=== PATIENT | female | born 1960 | race African-American/Black ===

== ENCOUNTER 2016-06-23 08:53 | Emergency (ER) | payer BC ==
[2016-06-23 08:58] VITALS: BP 126/93; PULSE 110; TEMP 98.1; BMI 34.3
[2016-06-23] MEDS ORDERED: ALBUTEROL SO4 2.5/IPRATROPIUM 0.5 INH SOL 3 ML VIAL.NEB. NEB ONE (09:19)
[2016-06-23] MEDS ORDERED: guaiFENesin 200 MG/10 ML 10 ML UNIT-DOSE CUPS PO ONE (09:20)
[2016-06-23] MEDS ORDERED: ALBUTEROL SO4 0.083% IH SOL 2.5 MG/3 ML VIAL.NEB. NEB ONE (09:47)
--- NOTE | 2016-06-23 09:52 | PDOC ---
History of Present Illness - General Chief Complaint: Cold Symptoms Stated Complaint: COUGH, SOB Time Seen by Provider: 06/23/16 09:14 History Source: Patient Exam Limitations: No Limitations - History of Present Illness Initial Comments: 06/23/16 09:49 55 yr female with history of asthma presents with cough wheezing ran out of singulair. no fever no productive phlegm, no shortness of breath. No intubations. Pt speaking full sentences no distress. 06/23/16 09:50 Past History - Past Medical History Allergies/Adverse Reactions: Allergies Allergy/AdvReac Type Severity Reaction Status Date / Time No Known Allergies Allergy Verified 06/23/16 08:53 Home Medications: Ambulatory Orders Albuterol Sulfate Inhaler - [Ventolin HFA Inhaler -] 2 inh IH Q6H #1 inh Albuterol Sulfate Liquid [Ventolin Oral Solution -] 4 mg PO QID #60 ml 11/21/15 Prednisone [Deltasone -] 60 mg PO DAILY #12 tablet 03/13/16 Albuterol 0.083% Nebulizer Leilani [Ventolin 0.083% Nebulizer Soln -] 1 neb NEB Q4H PRN #20 vial 06/23/16 Montelukast Na [Singulair -] 10 mg PO HS #30 tablet 06/23/16 Prednisone [Deltasone -] 40 mg PO DAILY #14 tablet 06/23/16 Anemia: No Asthma: Yes Cancer: No Cardiac Disorders: No CVA: No COPD: No CHF: No Dementia: No Diabetes: No GI Disorders: No Disorders: No HTN: No Hypercholesterolemia: No Liver Disease: No Suicide Attempt (Hx): No Seizures: No Thyroid Disease: No - Surgical History Abdominal Surgery: No Appendectomy: No Cardiac Surgery: No Cholecystectomy: No Lung Surgery: No Neurologic Surgery: No Orthopedic Surgery: No - Family Disease History Family Disease History: Diabetes: Father - Immunization History Immunization Up to Date: Yes - Psycho/Social/Smoking Cessation Hx Anxiety: No Suicidal Ideation: No Smoking Status: No Smoking History: Never smoked Have you smoked in the past 12 months: No Number of Cigarettes Smoked Daily: 0 Cigars Per Day: 0 Information on smoking cessation initiated: No Hx Alcohol Use: No Drug/Substance Use Hx: No Substance Use Type: None Respiratory Specific PMHX - Complaint Specific PMHX Bronchitis: Yes Review of Systems - Review of Systems Able to Perform ROS?: Yes Is the patient limited Uzbek proficient: No Constitutional: No: Symptoms Reported HEENTM: Yes: Symptoms Reported Respiratory: Yes: Cough *Physical Exam - Vital Signs Last Vital Signs Temp Pulse Resp BP Pulse Ox 98.1 F 110 H 18 126/93 100 06/23/16 08:54 06/23/16 08:54 06/23/16 08:54 06/23/16 08:54 06/23/16 08:54 - Physical Exam General Appearance: Yes: Nourished, Appropriately Dressed HEENT: positive: EOMI, PETRA, Normal ENT Inspection, TMs Normal, Pharynx Normal Neck: positive: Supple. negative: Lymphadenopathy (R), Lymphadenopathy (L) Respiratory/Chest: positive: Lungs Clear, Normal Breath Sounds, Wheezing Cardiovascular: positive: Regular Rhythm, Regular Rate Gastrointestinal/Abdominal: positive: Normal Bowel Sounds, Soft Musculoskeletal: positive: Normal Inspection Extremity: positive: Normal Capillary Refill, Normal Inspection, Normal Range of Motion Integumentary: positive: Normal Color, Dry, Warm Neurologic: positive: Fully Oriented, Alert, Normal Mood/Affect, Normal Response , Motor Strength 10/03 ED Treatment Course - Medications Given in the ED: ED Medications Discontinued Medications Generic Name Dose Route Start Last Admin Trade Name Freq PRN Reason Stop Dose Admin Albuterol/Ipratropium 1 amp 06/23/16 09:19 06/23/16 09:26 Duoneb - NEB 06/23/16 09:20 1 amp ONCE ONE Administration Guaifenesin 10 ml 06/23/16 09:20 06/23/16 09:32 Robitussin - PO 06/23/16 09:21 10 ml ONCE ONE Administration Medical Decision Making - Medical Decision Making 06/23/16 09:51 cc: cough wheezing mild expiratory will give 2 duonebs and re-eval 06/23/16 16:47 pt improved after duonebs. mild exp wheezing will place on prednisone pt speaking clearly will follow with her PMD in 1-2 days all questions asked and answered before discharge *DC/Admit/Observation/Transfer Diagnosis at time of Disposition: Asthma exacerbation Qualifiers: Asthma severity: mild intermittent Qualified Code(s): J45.21 - Mild intermittent asthma with (acute) exacerbation - Discharge Dispostion Condition at time of disposition: Good - Prescriptions Prescriptions: Prednisone [Deltasone -] 40 mg PO DAILY #14 tablet Montelukast Na [Singulair -] 10 mg PO HS #30 tablet Albuterol 0.083% Nebulizer Leilani [Ventolin 0.083% Nebulizer Soln -] 1 neb NEB Q4H PRN #20 vial PRN Reason: Asthma - Patient Instructions Additional Instructions: drink pleanty of water to stay hydrated take singulair at bedtime every night use your nebulizer every 4hrs for wheezing as needed next dose prednisone tomorrow morning
[2016-06-23] MEDS ORDERED: predniSONE 20 MG TABLET (UD) PO ONE (10:12)
== END 2016-06-23 10:17 | disposition home or self-care (01) ==
LOC: JERFT 08:53
PROC: 3E0F7GC Introduction of Other Therapeutic Substance into Respiratory Tract, Via Natural or Artificial Opening (ICD-10-PCS; principal; 2016-06-23)
PROC: 3E0F7GC Introduction of Other Therapeutic Substance into Respiratory Tract, Via Natural or Artificial Opening (ICD-10-PCS; 2016-06-23)
DX: J45.21 Mild intermittent asthma with (acute) exacerbation (principal)
CPT/HCPCS: 99281-25

== ENCOUNTER 2016-09-26 13:17 | Emergency (ER) | payer BC ==
[2016-09-26 13:21] VITALS: BP 128/88; TEMP 97.7; BMI 34.3
--- NOTE | 2016-09-26 13:39 | PDOC ---
History of Present Illness - General Chief Complaint: Respiratory Stated Complaint: CHEST PAIN Time Seen by Provider: 09/26/16 13:37 History Source: Patient Exam Limitations: No Limitations - History of Present Illness Initial Comments: CHIEF COMPLAINT: 55 y/o afebrile female with PMH asthma c/o dry cough x 5 days. HISTORY OF PRESENT ILLNESS: The patient states she has had a dry cough for the past 5 days but since yesterday her chest is sore with her cough. Normally she uses her nebulizer and her symptoms improve but they haven't. She denies fever , chills, runny nose, watery eyes, earache, sore throat, n/v/d, abd pain, dizziness, palpitations. Vital signs on arrival are notable for pulse of 98 with O2 sat of 96% REVIEW OF SYSTEMS: GENERAL/CONSTITUTIONAL: No fever/chills. No weakness. No weight change. HEAD, EYES, EARS, NOSE AND THROAT: No change in vision. No ear pain or discharge. No sore throat. CARDIOVASCULAR: +post tussive chest pain. No shortness of breath. RESPIRATORY: +cough and wheezing. No hemoptysis. GASTROINTESTINAL: No abd pain, nausea, vomiting, diarrhea. GENITOURINARY: No dysuria, frequency, or change in urination. MUSCULOSKELETAL: No joint or muscle swelling or pain. No neck or back pain. SKIN: No rash or easy bruising. NEUROLOGIC: No headache, vertigo, loss of consciousness, or loss of sensation. PHYSICAL EXAM: GENERAL: The patient is awake, alert, and fully oriented, in no acute distress. She is well appearing and ambulatory. HEAD: Normal with no signs of trauma. ENT: Pupils equal, round and reactive to light, extraocular movements intact, sclera anicteric, conjunctiva clear. Neck supple. LUNGS: Diffuse expiratory wheezing, worse in right lung shaver. Normal excursion. No respiratory distress or use of accessory muscles. CHEST WALL: No reproducible chest wall pain with palpation. CV: RRR, S1/S2, no MRG. Cap refill < 2 sec. ABDOMEN: Soft, non-distended, non-tender even to deep palpation, no hepatomegaly or splenomegaly, no masses. EXTREMITIES: Normal range of motion, no edema. NEUROLOGICAL: Normal speech, normal gait. CN II-XII grossly intact. PSYCH: Normal mood, normal affect. SKIN: Warm, dry, normal turgor, no rashes or lesions noted. Past History - Past Medical History Allergies/Adverse Reactions: Allergies Allergy/AdvReac Type Severity Reaction Status Date / Time No Known Allergies Allergy Verified 09/26/16 13:19 Home Medications: Ambulatory Orders Albuterol Sulfate Inhaler - [Ventolin HFA Inhaler -] 2 inh IH Q6H #1 inh Albuterol Sulfate Liquid [Ventolin Oral Solution -] 4 mg PO QID #60 ml 11/21/15 Prednisone [Deltasone -] 60 mg PO DAILY #12 tablet 03/13/16 Albuterol 0.083% Nebulizer Leilani [Ventolin 0.083% Nebulizer Soln -] 1 neb NEB Q4H PRN #20 vial 06/23/16 Montelukast Na [Singulair -] 10 mg PO HS #30 tablet 06/23/16 Prednisone [Deltasone -] 40 mg PO DAILY #14 tablet 06/23/16 Albuterol 0.083% Nebulizer Leilani [Ventolin 0.083% Nebulizer Soln -] 1 neb NEB Q4H #20 vial 09/26/16 Prednisone [Deltasone -] 60 mg PO UTDICT #12 tablet 09/26/16 Anemia: No Asthma: Yes Cancer: No Cardiac Disorders: No CVA: No COPD: No CHF: No Dementia: No Diabetes: No GI Disorders: No Disorders: No HTN: No Hypercholesterolemia: No Liver Disease: No Suicide Attempt (Hx): No Seizures: No Thyroid Disease: No - Surgical History Abdominal Surgery: No Appendectomy: No Cardiac Surgery: No Cholecystectomy: No Lung Surgery: No Neurologic Surgery: No Orthopedic Surgery: No - Family Disease History Family Disease History: Diabetes: Father - Immunization History Immunization Up to Date: Yes - Psycho/Social/Smoking Cessation Hx Anxiety: No Suicidal Ideation: No Smoking Status: No Smoking History: Never smoked Have you smoked in the past 12 months: No Number of Cigarettes Smoked Daily: 0 Cigars Per Day: 0 Information on smoking cessation initiated: No Hx Alcohol Use: No Drug/Substance Use Hx: No Substance Use Type: None Cardiac Specific PMH - Complaint Specific PMHX Pacemaker: No *Physical Exam - Vital Signs Last Vital Signs Temp Pulse Resp BP Pulse Ox 97.7 F 89 18 128/88 96 09/26/16 13:19 09/26/16 15:05 09/26/16 15:05 09/26/16 13:19 09/26/16 15:05 Heart Score/ECG Review - ECG Intrepretation Comment:: Twelve-lead EKG was performed and reviewed by Dr. Sarmiento. There is normal sinus rhythm with a normal rate. The axis is normal. The intervals are normal. There are no ST or T wave abnormalities. Impression: Normal twelve-lead EKG ED Treatment Course - RADIOLOGY Radiology Studies Ordered: Category Date Time Status CHEST PA & LAT [RAD] Stat Radiology 09/26/16 13:47 Completed - Medications Given in the ED: ED Medications Discontinued Medications Generic Name Dose Route Start Last Admin Trade Name Freq PRN Reason Stop Dose Admin Albuterol/Ipratropium 1 amp 09/26/16 14:00 09/26/16 14:36 Duoneb - NEB 09/26/16 14:46 1 amp Q15M FERMÍN Administration Prednisone 60 mg 09/26/16 13:47 09/26/16 13:51 Deltasone - PO 09/26/16 13:48 60 mg ONCE ONE Administration Medical Decision Making - Medical Decision Making A/P: 55 y/o afebrile female with asthma exacerbation that is not improving with her albuterol nebs at home. Plan is as follows: 1. EKG 2. CXR 3. Duoneb 4. PO prednisone EKG - normal CXR IMPRESSION: No evidence of pneumonia, CHF or atelectasis. The patient states she feels better after duoneb and prednisone. Her repeat lung exam reveals continued expiratory wheezing on the right side but improved. THe patient wants to go home. Will d/c to home with rx for 4 day course of prednisone and albuterol for nebulizer. Instructed the patient to use as prescribed and return to the ER with any worsening or concerning symptoms. The patient verbalizes understanding of all instructions, has no further questions and is awaiting discharge. *DC/Admit/Observation/Transfer Diagnosis at time of Disposition: Asthma exacerbation Qualifiers: Asthma severity: unspecified severity Qualified Code(s): J45.901 - Unspecified asthma with (acute) exacerbation - Discharge Dispostion Disposition: HOME Condition at time of disposition: Improved - Prescriptions Prescriptions: Prednisone [Deltasone -] 60 mg PO UTDICT #12 tablet Albuterol 0.083% Nebulizer Leilani [Ventolin 0.083% Nebulizer Soln -] 1 neb NEB Q4H #20 vial - Referrals Referrals: Efren Flores [Primary Care Provider] - - Patient Instructions Printed Discharge Instructions: DI for Asthma -- Adult Additional Instructions: Discharge Instructions: -Take prednisone as prescribed starting tomorrow -Use albuterol nebulizer as prescribed -Return to the ER immediately with any worsening or concerning symptoms.
[2016-09-26] MEDS ORDERED: ALBUTEROL SO4 2.5/IPRATROPIUM 0.5 INH SOL 3 ML VIAL.NEB. NEB ONE ×2 (13:47→14:33)
[2016-09-26] MEDS ORDERED: predniSONE 20 MG TABLET (UD) ONE (13:47)
[2016-09-26] MEDS ORDERED: predniSONE 20 MG TABLET (UD) PO ONE (13:47)
[2016-09-26] MEDS: ALBUTEROL SO4 2.5/IPRATROPIUM 0.5 INH SOL 3 ML VIAL.NEB. NEB SCH ×2 (13:51→14:36)
[2016-09-26 15:05] VITALS: PULSE 89
--- NOTE | 2016-09-29 12:23 | EKG ---
Test Reason : Blood Pressure : / mmHG Vent. Rate : 089 BPM Atrial Rate : 089 BPM P-R Int : 176 ms QRS Dur : 080 ms QT Int : 374 ms P-R-T Axes : 066 038 018 degrees QTc Int : 455 ms NORMAL SINUS RHYTHM POSSIBLE LEFT ATRIAL ENLARGEMENT BORDERLINE ECG WHEN COMPARED WITH ECG OF 05-MAY-2013 01:44, NO SIGNIFICANT CHANGE WAS FOUND Confirmed by LINDY LOYA MD ([id number]) on 09/29/2016 12:22:33 PM Referred By: Confirmed By:LINDY LOYA MD
== END 2016-09-26 15:15 | disposition home or self-care (01) ==
LOC: JER 13:17 → JERFT 13:17
PROC: 3E0F7GC Introduction of Other Therapeutic Substance into Respiratory Tract, Via Natural or Artificial Opening (ICD-10-PCS; principal; 2016-09-26)
DX: J45.901 Unspecified asthma with (acute) exacerbation (principal)
CPT/HCPCS: 71020-TC; 93005; 93010; 99281-25

== ENCOUNTER 2017-01-19 17:08 | Emergency (ER) | payer BC ==
[2017-01-19 17:12] VITALS: BP 105/70; PULSE 90; TEMP 98; BMI 34.3
[2017-01-19] MEDS ORDERED: CEPHALEXIN MONOHYDRATE 500 MG CAPSULE (UD) PO ONE (20:47)
[2017-01-19] MEDS ORDERED: IBUPROFEN 600 MG TABLET (FP) PO ONE (20:47)
[2017-01-19] MEDS ORDERED: SULFAMETHOXAZOLE/TRIMETHOPRIM 800MG/160MG D.S. TABLET PO ONE (20:47)
--- NOTE | 2017-01-19 20:47 | PDOC ---
History of Present Illness - History of Present Illness Initial Comments: 01/19/17 21:35 The patient is a 56 year old female, with a significant past medical history of asthma, who presents to the emergency department with left breast abscess for two days. Patient reports associated pain at the site. Patient believed it was a bug bite. Denies scratching or picking at the area. Denies fever, chills. No other complaints. Allergies: NKA <Julieta Tovar - Last Filed: 01/19/17 21:45> <Franchesca Carlisle - Last Filed: 01/20/17 01:04> - General Chief Complaint: Redness To Affected Area Stated Complaint: breast pain Time Seen by Provider: 01/19/17 20:00 Past History <Julieta Tovar - Last Filed: 01/19/17 21:45> - Past Medical History Anemia: No Asthma: Yes Cancer: No Cardiac Disorders: No CVA: No COPD: No CHF: No Dementia: No Diabetes: No GI Disorders: No Disorders: No HTN: No Hypercholesterolemia: No Liver Disease: No Suicide Attempt (Hx): No Seizures: No Thyroid Disease: No - Surgical History Abdominal Surgery: No Appendectomy: No Cardiac Surgery: No Cholecystectomy: No Lung Surgery: No Neurologic Surgery: No Orthopedic Surgery: No - Family Disease History Family Disease History: Diabetes: Father - Immunization History Immunization Up to Date: Yes - Psycho/Social/Smoking Cessation Hx Anxiety: No Suicidal Ideation: No Smoking Status: No Smoking History: Never smoked Have you smoked in the past 12 months: No Number of Cigarettes Smoked Daily: 0 Cigars Per Day: 0 Information on smoking cessation initiated: No Hx Alcohol Use: No Drug/Substance Use Hx: No Substance Use Type: None <Franchesca Carlisle - Last Filed: 01/20/17 01:04> - Past Medical History Allergies/Adverse Reactions: Allergies Allergy/AdvReac Type Severity Reaction Status Date / Time No Known Allergies Allergy Verified 01/19/17 17:09 Home Medications: Ambulatory Orders Albuterol Sulfate Inhaler - [Ventolin HFA Inhaler -] 2 inh IH Q6H #1 inh Albuterol Sulfate Liquid [Ventolin Oral Solution -] 4 mg PO QID #60 ml 11/21/15 Prednisone [Deltasone -] 60 mg PO DAILY #12 tablet 03/13/16 Albuterol 0.083% Nebulizer Leilani [Ventolin 0.083% Nebulizer Soln -] 1 neb NEB Q4H PRN #20 vial 06/23/16 Montelukast Na [Singulair -] 10 mg PO HS #30 tablet 06/23/16 Prednisone [Deltasone -] 40 mg PO DAILY #14 tablet 06/23/16 Albuterol 0.083% Nebulizer Leilani [Ventolin 0.083% Nebulizer Soln -] 1 neb NEB Q4H #20 vial 09/26/16 Prednisone [Deltasone -] 60 mg PO UTDICT #12 tablet 09/26/16 Cephalexin Monohydrate [Keflex -] 500 mg PO Q6H #28 capsule 01/19/17 Sulfamethoxazole/Trimethoprim [Bactrim Ds -] 1 tab PO BID #14 tablet 01/19/17 Review of Systems - Review of Systems Comments:: 01/19/17 21:44 GENERAL/CONSTITUTIONAL: No fever or chills. No weakness. HEAD, EYES, EARS, NOSE AND THROAT: No change in vision. No ear pain or discharge. No sore throat. GASTROINTESTINAL: No nausea, vomiting, diarrhea or constipation. GENITOURINARY: No dysuria, frequency, or change in urination. CARDIOVASCULAR: No chest pain or shortness of breath. RESPIRATORY: No cough, wheezing, or hemoptysis. MUSCULOSKELETAL: No joint or muscle swelling or pain. No neck or back pain. SKIN: + left areola abscess . No rash NEUROLOGIC: No headache, vertigo, loss of consciousness, or change in strength/ sensation. ENDOCRINE: No increased thirst. No abnormal weight change. HEMATOLOGIC/LYMPHATIC: No anemia, easy bleeding, or history of blood clots. ALLERGIC/IMMUNOLOGIC: No hives or skin allergy. <Julieta Tovar - Last Filed: 01/19/17 21:45> *Physical Exam - Vital Signs Last Vital Signs Temp Pulse Resp BP Pulse Ox 98.0 F 90 18 105/70 100 01/19/17 17:09 01/19/17 17:09 01/19/17 17:09 01/19/17 17:09 01/19/17 17:09 <Julieta Tovar - Last Filed: 01/19/17 21:45> - Vital Signs Last Vital Signs Temp Pulse Resp BP Pulse Ox 98.0 F 90 18 105/70 100 01/19/17 17:09 01/19/17 17:09 01/19/17 17:09 01/19/17 17:09 01/19/17 17:09 - Physical Exam Comments: GENERAL: Awake, alert, and fully oriented, in no acute distress HEAD: No signs of trauma EYES: PERRLA, EOMI, sclera anicteric, conjunctiva clear ENT: Auricles normal inspection, hearing grossly normal, nares patent, oropharynx clear without exudates. Moist mucosa NECK: Normal ROM, supple, no lymphadenopathy, JVD, or masses LUNGS: Breath sounds equal, clear to auscultation bilaterally. No wheezes, and no crackles HEART: Regular rate and rhythm, normal S1 and S2, no murmurs, rubs or gallops ABDOMEN: Soft, nontender, normoactive bowel sounds. No guarding, no rebound. No masses EXTREMITIES: Normal range of motion, no edema. No clubbing or cyanosis. No cords, erythema, or tenderness NEUROLOGICAL: Cranial nerves II through XII grossly intact. Normal speech, normal gait SKIN: Warm, Dry, normal turgor, no rashes or lesions noted. BREASTS: L breast with 4 cm x 2 cm oblong, indurated, fluctuant lesion. + Surrounding cellulitis. <Franchesca Carlisle - Last Filed: 01/20/17 01:04> Procedures - Incision and Drainage I&D Site: Left: Other (breast) Anesthesia: 1% Lidocaine Volume(ml): 3 Blade Size: 15 blade Attempts: 1 Iodinated Packin/2 in Complications: none Dressing: Yes Progress: Area was anesthetized, then incised with #15 blade. Wound expressed moderate amount of purulent material, which was cultured. Packing placed, gauze dressing. <Franchesca Carlisle - Last Filed: 01/20/17 01:04> ED Treatment Course - Medications Given in the ED: ED Medications Discontinued Medications Generic Name Dose Route Start Last Admin Trade Name Freq PRN Reason Stop Dose Admin Cephalexin HCl 500 mg 01/19/17 20:47 01/19/17 21:06 Keflex - PO 01/19/17 20:48 500 mg ONCE ONE Administration Ibuprofen 600 mg 01/19/17 20:47 01/19/17 21:06 Motrin - PO 01/19/17 20:48 600 mg ONCE ONE Administration Trimethoprim/Sulfamethoxazole 1 each 01/19/17 20:47 01/19/17 21:06 Bactrim Ds - PO 01/19/17 20:48 1 each ONCE ONE Administration <Julieta Tovar - Last Filed: 01/19/17 21:45> *DC/Admit/Observation/Transfer - Attestations Scribe Attestion: 01/19/17 21:45 Documentation prepared by Julieta Tovar, acting as director of medical services for Franchesca Carlisle MD. <Julieta Tovar - Last Filed: 01/19/17 21:45> - Discharge Dispostion Admit: No <Franchesca Carlisle - Last Filed: 01/20/17 01:04> Diagnosis at time of Disposition: Abscess of breast, left - Discharge Dispostion Disposition: HOME Condition at time of disposition: Stable - Prescriptions Prescriptions: Sulfamethoxazole/Trimethoprim [Bactrim Ds -] 1 tab PO BID #14 tablet Cephalexin Monohydrate [Keflex -] 500 mg PO Q6H #28 capsule - Patient Instructions Printed Discharge Instructions: DI for Incision and Drainage of a Skin Abscess Additional Instructions: RETURN TO THE ED IN 24-48 HOURS FOR A WOUND CHECK. TAKE ANTIBIOTICS PRESCRIBED.
== END 2017-01-19 21:19 | disposition home or self-care (01) ==
LOC: JER 17:08
PROC: 0H9UXZZ (ICD-10-PCS; principal; 2017-01-19)
DX: N61.1 Abscess of the breast and nipple (principal)
CPT/HCPCS: 87070; 87186; 87205; 99281-25

== ENCOUNTER 2017-01-23 13:36 | Emergency (ER) | payer BC ==
[2017-01-23 14:05] VITALS: BP 135/62; PULSE 75; TEMP 97.9; BMI 34.7
--- NOTE | 2017-01-23 15:28 | PDOC ---
Suture Removal/Wound Check HPI - History of Present Illness Chief Complaint: Revisit,Wound Recheck Stated Complaint: WOUND INFECTION Time Seen by Provider: 01/23/17 15:02 History Source: Yes: Patient Exam Limitations: Yes: No Limitations [facility] Date of Last ED visit: 01/19/17 - Previous ED Treatment Type of procedure performed on last visit: Yes: I&D of Abscess Antibiotics Prescribed: Yes - Onset of Previous Treatment Date of Occurence: 01/17/17 Past History - Past Medical History Allergies/Adverse Reactions: Allergies No Known Allergies Allergy (Verified 01/23/17 14:02) Home Medications: Ambulatory Orders Albuterol Sulfate Inhaler - [Ventolin HFA Inhaler -] 2 inh IH Q6H #1 inh Albuterol Sulfate Liquid [Ventolin Oral Solution -] 4 mg PO QID #60 ml 11/21/15 Prednisone [Deltasone -] 60 mg PO DAILY #12 tablet 03/13/16 Albuterol 0.083% Nebulizer Leilani [Ventolin 0.083% Nebulizer Soln -] 1 neb NEB Q4H PRN #20 vial 06/23/16 Montelukast Na [Singulair -] 10 mg PO HS #30 tablet 06/23/16 Prednisone [Deltasone -] 40 mg PO DAILY #14 tablet 06/23/16 Albuterol 0.083% Nebulizer Leilani [Ventolin 0.083% Nebulizer Soln -] 1 neb NEB Q4H #20 vial 09/26/16 Prednisone [Deltasone -] 60 mg PO UTDICT #12 tablet 09/26/16 Cephalexin Monohydrate [Keflex -] 500 mg PO Q6H #28 capsule 01/19/17 Sulfamethoxazole/Trimethoprim [Bactrim Ds -] 1 tab PO BID #14 tablet 01/19/17 - Immunization History Immunizations Up to Date: Yes - Social History Smoking History: No Smoking Status: Never smoked Number of Ciarettes Per Day: 0 Cigars Per Day: 0 Alcohol Use: none Drug Use: none *DC/Admit/Observation/Transfer Diagnosis at time of Disposition: Wound check, abscess - Discharge Dispostion Disposition: HOME Condition at time of disposition: Stable Admit: No - Patient Instructions Printed Discharge Instructions: DI for Wound Infection Additional Instructions: Continue taking antibiotics and complete the entire course as prescribed. As discussed previously, return to the ER if you develop any redness, warmth, swelling, or pain to the site of the wound, or if you develop fever, nausea, vomiting, or diarrhea.
== END 2017-01-23 15:32 | disposition home or self-care (01) ==
LOC: JERFT 13:36
DX: Z09 Encounter for follow-up examination after completed treatment for conditions other than malignant neoplasm (principal)
CPT/HCPCS: 99281-25

== ENCOUNTER 2017-02-27 17:29 | Emergency (ER) | payer BC ==
[2017-02-27 17:54] VITALS: BP 127/96; PULSE 98; TEMP 98.9; BMI 34.3
[2017-02-27] MEDS ORDERED: ALBUTEROL SO4 2.5/IPRATROPIUM 0.5 INH SOL 3 ML VIAL.NEB. NEB ONE ×4 (18:18→19:36)
[2017-02-27] MEDS ORDERED: DEXAMETHASONE LIQUID 0.5 MG/5 ML 240 ML BULK BOTTLE PO ONE (18:29)
[2017-02-27] MEDS ORDERED: DEXAMETHASONE SOD PHOSPHATE 10 MG/1 ML VIAL ONE (18:34)
--- NOTE | 2017-02-27 18:39 | PDOC ---
History of Present Illness - General Chief Complaint: Respiratory Stated Complaint: ASTHMA Time Seen by Provider: 02/27/17 18:17 - History of Present Illness Initial Comments: 02/27/17 18:34 CHIEF COMPLAINT: asthma attack HISTORY OF PRESENT ILLNESS: 56 yo F with hx of asthma presents to [facility] with asthma attack. Patient reports that this feels "just like an asthma attack , my inhaler didn't work." No recent travel or sick contacts. PAST MEDICAL HISTORY: Denies past medical history FAMILY HISTORY: Denies SOCIAL HISTORY: Denies tobacco, alcohol, illicit drug use. SURGICAL HISTORY: Denies ALLERGIES: No known drug allergies REVIEW OF SYSTEMS General/Constitutional: Denies fever or chills. Denies weakness, weight change. HEENT: Denies change in vision. Denies ear pain or discharge. Denies sore throat. Cardiovascular: Denies chest pain. Respiratory: "asthma attack" PHYSICAL EXAM General Appearance: Well-appearing, appropriately dressed. No apparent distress , no intoxication. HEENT: EOMI, PERRLA, normal ENT inspection, normal voice, TMs normal, pharynx normal. No conjunctival pallor. No photophobia, scleral icterus. Neck: Supple. Trachea midline. No tenderness, rigidity, carotid bruit, stridor , lymphadenopathy, or thyromegaly. Respiratory/Chest: Diffuse wheezing b/l with persistent cough. No accessory muscle use. Cardiovascular: RRR. S1, S2. Musculoskeletal/Extremities: Normal inspection. FROM of all extremities, normal capillary refill. Pelvis Stable. No CVA tenderness. No tenderness to extremities, pedal edema, swelling, erythema or deformity. Integumentary: Appropriate color, dry, warm. 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 Fully oriented, alert. Appropriate mood/affect. Motor strength 5/5. No appreciable EOM palsy, facial droop or sensory deficit. 02/27/17 20:41 Past History - Past Medical History Allergies/Adverse Reactions: Allergies Allergy/AdvReac Type Severity Reaction Status Date / Time No Known Allergies Allergy Verified 02/27/17 17:49 Home Medications: Ambulatory Orders Albuterol 0.083% Nebulizer Leilani [Ventolin 0.083% Nebulizer Soln -] 1 neb NEB Q4H PRN #20 vial 02/27/17 Anemia: No Asthma: Yes Cancer: No Cardiac Disorders: No CVA: No COPD: No CHF: No Dementia: No Diabetes: No GI Disorders: No Disorders: No HTN: No Hypercholesterolemia: No Liver Disease: No Seizures: No Thyroid Disease: No - Surgical History Abdominal Surgery: No Appendectomy: No Cardiac Surgery: No Cholecystectomy: No Lung Surgery: No Neurologic Surgery: No Orthopedic Surgery: No - Family Disease History Family Disease History: Diabetes: Father - Immunization History Immunization Up to Date: Yes - Suicide/Smoking/Psychosocial Hx Smoking Status: No Smoking History: Never smoked Have you smoked in the past 12 months: No Number of Cigarettes Smoked Daily: 0 Cigars Per Day: 0 Information on smoking cessation initiated: No Hx Alcohol Use: No Drug/Substance Use Hx: No Substance Use Type: None Respiratory Specific PMHX - Complaint Specific PMHX Bronchitis: Yes *Physical Exam - Vital Signs Last Vital Signs Temp Pulse Resp BP Pulse Ox 98.9 F 98 H 18 127/96 98 02/27/17 17:47 02/27/17 17:47 02/27/17 17:47 02/27/17 17:47 02/27/17 17:47 ED Treatment Course - Medications Given in the ED: ED Medications Discontinued Medications Generic Name Dose Route Start Last Admin Trade Name Freq PRN Reason Stop Dose Admin Albuterol/Ipratropium 1 amp 02/27/17 18:18 02/27/17 18:21 Duoneb - NEB 02/27/17 18:19 1 amp ONCE ONE Administration Medical Decision Making - Medical Decision Making 02/27/17 19:47 56 yo F with hx of asthma presents to [facility] with asthma attack. -Duoneb Patient reassessed, continues to have expiratory wheezing b/l and states she is still not feeling well. -Decadron 10 mg Patient reassessed, expiratory wheezing continues, will order chest x-ray to r/ o infiltrate. -Duoneb x 2 CXR negative for infiltrate. Patient reassessed, lungs clear at this time. Patient comfortable going home with albuterol neb refill. *DC/Admit/Observation/Transfer Diagnosis at time of Disposition: Asthma attack - Discharge Dispostion Disposition: HOME Condition at time of disposition: Stable Admit: No - Prescriptions Prescriptions: Albuterol 0.083% Nebulizer Leilani [Ventolin 0.083% Nebulizer Soln -] 1 neb NEB Q4H PRN #20 vial PRN Reason: Asthma - Referrals Referrals: Efren Flores [Primary Care Provider] - - Patient Instructions Printed Discharge Instructions: DI for Asthma -- Adult Additional Instructions: Please use the nebulizer as directed. Follow up with your primary care doctor for continued management of your asthma. If you feel another asthma attack occurring, develop fever, chills, nausea, vomiting, or any new or worsening symptoms, please return to the ER.
== END 2017-02-27 20:06 | disposition home or self-care (01) ==
LOC: JERFT 17:29
PROC: 3E0F7GC Introduction of Other Therapeutic Substance into Respiratory Tract, Via Natural or Artificial Opening (ICD-10-PCS; principal; 2017-02-27)
DX: J45.901 Unspecified asthma with (acute) exacerbation (principal)
CPT/HCPCS: 71020-TC; 99281-25